=== PATIENT | female | born 1990 | race American Indian/Alaskan Native ===

== ENCOUNTER 2017-05-18 04:54 | Emergency (ER) | payer BC ==
[2017-05-18 05:36] VITALS: BMI 30.2
[2017-05-18] MEDS: Lactated Ringer's 1,000 ML IV SCH ×2 (06:00→06:35)
[2017-05-18 07:05] LABS: SQUAMOUS EPITHIAL 21 /hpf (0-5); URINE BACTERIA RARE (<OCC); URINE BILIRUBIN NEGATIVE (NEGATIVE); URINE BLOOD NEGATIVE (NEGATIVE); URINE CLARITY CLOUDY (Clear); URINE COLOR YELLOW (YELLOW); URINE GLUCOSE (UA) NEG (Normal); URINE HYALINE CAST 0-2 /hpf (0-2); URINE LEUKOCYTE ESTERASE LARGE Leu/uL (Negative); URINE NITRATE NEGATIVE (NEGATIVE); URINE PROTEIN NEGATIVE (NEGATIVE); URINE UROBILINOGEN 0.2-1.0 mg/dL (0.2-1.0)
[2017-05-18 07:55] LABS: SPECIMEN COMMENT CLEAR
--- NOTE | 2017-05-18 09:27 | OBHP ---
Datetime: 05/18/2017 05:45 IP Adm Impression: , intrauterine ; No Active Labor IP Admit Plan: Observation/Evaluation Admit Comment, IP Provider: 27 y/o F , 32.2 wks JAZMIN jul 11 by LMP and U/S, comes to t he ED c/o pain and ctx which is 5 tp 6 mins a part and pain 6-7/10 in severity, started yesterday at 5PM. pt admits feeling nauseated but no vomiting, headache or visual changes. No sexual activity in l ast 24hrs - negative BV/LOF, + CTX and + good FM PNC: Last visit to a doc on 05/11/17 and next visit on 05/25 PNI: no complications with this so far, no ubnormal labs per pt POB/DRAMA THERAPIST: , hx of one miscarriage at 8wks and 1 NVD induced at 36wks due to preeclampsia PMH: none PSH: dental and cervical disk herniation Meds: baby Asprin and PNV All: Penicillin (pt doesnt recall any reactions) SH: no alcohol, no smoking or drug use ROS: as per HPI VS: stable reassuring FHR PE: unremarkable A/P: 27 y/o F , 32.2 wks JAZMIN jul 11 by LMP and U/S, comes to the ED c/o pain and ct x -monitor VS -reassuring FHT -IVF -f/u UA -f/u FFN -will reevaluate -case discussed with Dr. Nazario ---Bob Kaba, PGY-1 OB Hospitalist note: She was seen and examined by me with Dr Kaba. Condition exaplained to pt. S he understood. She is from [place], visiting and staying at the [facility] in [place]. She agrees to IVF and testing...will observe BP (one elevated during vaginal exam) Pelvic Type - PN: Adequate Extremities - PN: Normal Abdomen - PN: Normal Back - PN: Normal Breast - PN: Not Done Lungs - PN: Normal Heart - PN: Normal Thyroid - PN: Normal Neurologic - PN: Normal HEENT - PN: Normal General - PN: Normal FHR - Baseline A Provider: 140 Membranes, Provider: Intact Contraction Comments Provider: occ Comments, ACOG Physical Exam: SSE closed; SVE closed ROS: General: no weakness; no fatigue HEENT: no SANTILLAN; no visual dist CV: no palpitations; no no CP GI: no N/V no diarhea No epigastric pain; non radiating : no F/U/D MS: No joint pain Pool Provider: Negative EGA AdmitDate IP: 32.4 Vital Signs Provider: Reviewed; Within Normal Limits IP Chief Complaint: Uterine contractions; Maternal discomfort NICHD Variability Prov Fetus A: Moderate 6-25bpm NICHD Accel Fetus A IP Provider: [id number] FHR Category Provider Fetus A: Category I NICHD Decel Fetus A IP Provider: None Dilatation, Provider: n/a Genitourinary Exam: Normal DTRs - PN: Normal
--- NOTE | 2017-05-18 09:29 | OBHP ---
Datetime: 05/18/2017 09:02 Admit Comment, IP Provider: Pt re-assessed this morning at 8:45am feeling better, contractions resolved FFN negative UA positive for nitrates, will d/c home with Macrobid 100mg BID for 7days Urine culture sent Lloyd Westfall PGY 3 OB Hosptialist note: results rev'd FFN neg; UA + LE; no nitires; + WBC...will send UCx; give Ab x 7d..spoek to pt and she understands. labor instructions given
--- NOTE | 2017-05-18 09:30 | OBDCSUM ---
Datetime: 05/18/2017 09:00 Discharged to, Provider: Home Follow up at, Provider: as per appt Disch Instr Activity: Normal activity Disch Instr Diet: Regular Discharge Instructions, Provider: Routine instructions given Discharge Diagnosis, Provider: False Labor - Undelivered Discharge Time: 05/18/2017 09:00 Follow up in weeks, Provider: as per appt Disch Referrals: None Contraception discussed, Prov: Yes Disch Activity Restrictions: No sexual activity; Nothing in vagina - [place], tampons, douche Discharge Comment, Provider: Pt being discharged home with antibiotics for UTI, Pt will be contacted regarding Urine culture results Macrobid 100mg po BID for 7d Discharge Diagnosis Prov Other: UTI
[2017-05-18 13:55] VITALS: BP 114/70; PULSE 72; RESP 17; TEMP 98.1; O2SAT 99
== END 2017-05-18 09:20 | disposition home or self-care (01) ==
LOC: H.EROB2 04:54
DX: O47.03 False labor before 37 completed weeks of gestation, third trimester (principal); Z3A.32 32 weeks gestation of pregnancy; O09.93 Supervision of high risk pregnancy, unspecified, third trimester
CPT/HCPCS: 81003; 87086; 96360; 99283; J7120